=== PATIENT | female | born 1970 | race Caucasian/White ===

== ENCOUNTER 2022-02-10 09:47 | Outpatient (CLI) | payer OTHER, SELFPAY ==
[2022-02-10 14:37] LABS: SARS PCR* Negative SARS-CoV-2 (Negative)
== END 2022-02-10 09:48 | disposition home or self-care (01) ==
LOC: FBOREF 09:48
PROVIDERS: PCP Family Medicine; Visit Provider Family Medicine
DX: Z20.822 Contact with and (suspected) exposure to COVID-19 (principal)
CPT/HCPCS: 87635

== ENCOUNTER 2022-02-11 16:44 | Inpatient (IN) | payer OTHER, SELFPAY ==
[2022-02-11] VITALS (19 sets, daily range): BP systolic 104–135; BP diastolic 59–94; PULSE 61–96; RESP 14–20; TEMP 36.3–37; O2SAT 96–100; BMI 25.0
[2022-02-11] MEDS: LACTATED RINGERS 1000 ML 1,000 ML 100 ML IV ×2 (06:50→14:28)
[2022-02-11] MEDS: SODIUM CHLORIDE 0.9 % (FLUSH) 10 ML SYRINGE IVF (06:57)
[2022-02-11 07:14] LABS: Hemoglobin* 15.9 gm/dL (12.0-16.0)
--- NOTE | 2022-02-11 09:16 | PM.PROC ---
Procedure Note Time Seen by Provider: 16:18 Date Seen: 02/11/22 Date of procedure: 02/11/22 Will [facility] bill your pro fee for this procedure?: Yes Procedure: Preoperative diagnosis: 51-year-old 5 para 3023 dysfunctional uterine bleeding and persistent left ovarian cyst. Non-palpable Nexplanon device: the patient desires to have this removed. Postoperative diagnosis: Same Procedures: 1. Ultrasound-guided Nexplanon Removal. 2. Attempted Total laparoscopic hysterectomy converted to total abdominal hysterectomy, bilateral salpingo oophorectomy and lysis of adhesions. Anesthesia: General endotracheal, local Surgeon: Shannon Mirza MD Assist: Cait Stroud MD Estimated blood loss: 200 mL. IV Fluid: 2,000 mL Urine output: 250 mL Drains: Pacheco to gravity Specimen: 1. Uterus with right fallopian tube and right ovary. 2. Left ovary and fallopian tube. Findings: On exam under anesthesia: The uterus was retroflexed, approximately 8 week size, mobile without nodularity or masses palpable. Adnexa without mass or fullness palpable. On laparoscopy: incidental uterine perforation by uterine manipulator. Thick adhesions of the bladder to the anterior uterine wall to of the round ligaments, almost to the fundus. Approximately 5 cm left ovarian cyst, smooth wall appears benign. Both fallopian tubes normal. Right ovary normal. Procedure: Daphney was taken to the operating room where general anesthetic was found to be adequate. She was placed in the dorsal lithotomy position and an exam under anesthesia was performed with findings stated above. She was then prepped and draped in a normal sterile manner. A Pacheco catheter was placed. The patient's left arm was placed at a 90 degree angle. The instructional media services technician placed the ultrasound probe on the patient's arm and the location of the Nexplanon was identified and marked on her skin. The skin was prepped with betadine, 0.50% Marcaine w/o epinephrine was injected (1.5ml used). A vertical 3mm skin incision was made over the distal devika of the Nexplanon device.The incision was extended horizontally with the scalpel. The ultrasound showed the Nexplanon device at least 5 mm below the skin. A small Kenisha clamp was used dissect through the subcutaneous adipose tissue to visualize the Nexplanon device. The device was noted to be added in the biceps muscle. The Kenisha clamp was used to grasp the Nexplanon device. The capsule was incised with the scalpel and the device removed without difficulty. Three subcutaneous interrupted sutures 4-0 Vicryl were placed. The skin was re-approximated Exofin. Attention was then turned to performing the hysterectomy. A bivalve speculum was placed in the vaginal canal. A single-tooth tenaculum was placed on the posterior lip of the cervix. The internal cervical os was extremely stenotic and the cervix dilated to Hegar #6 significant pressure. When an attempt to sound the uterus was made it was noted that the dilator had perforated the fundus of the uterus. A large VCare uterine manipulator was then placed. The tenaculum and speculum were removed from the cervix. Attention was then turned to performing the laparoscopic portion of the procedure. All incisions were infiltrated with 0.50% Marcaine without epinephrineprior to incising the skin. A vertical, infraumbilical 1 cm incision was made. An 11 mm trocar was then placed under direct visualization. The abdomen was then insufflated with CO2 gas to a pressure of 15 mm of mercury. a diagnostic laparoscopy was performed and noted that the uterine manipulator had perforated the fundus of the uterus just superior to the adhesions of the bladder to the anterior wall of the uterus. The uterine manipulator was removed and 3 attempts to replace it with visualization with the laparoscope was tried without success. Also with visualization of the very thick adhesions of the bladder to the anterior wall of the uterus the decision was made to convert to a total abdominal hysterectomy as these adhesions would not be able to be taken down safely laparoscopically. The 11 mm trocar was removed from umbilical incision and the skin reapproximated with 4-0 Monocryl in a running subcuticular manner. Exofin was then applied. Attention was turned to performing the laparotomy with total abdominal hysterectomy and bilateral salpingo oophorectomy. A Pfannenstiel skin incision was made with a scalpel. This incision was carried down to the underlying layer of fascia with the Bovie. The fascia was incised in the midline and the incision extended laterally with Solorio scissors. The superior and inferior aspects of the fascial incision were grasped with Effie clamps and the underlying rectus muscles dissected off with a combination of blunt and bipolar cautery dissection The rectus muscles were in the midline. The underlying peritoneum was identified and entered bluntly. The peritoneal incision was extended superiorly and inferiorly with good visualization of the bladder using a combination of blunt and sharp dissection. The patient was placed in some mild Trendelenburg position. The bowels were packed cephalad using a large moistened laparotomy sponge. The Bob O retractor was placed in the incision. This provided excellent visualization of the pelvis. The pelvis was inspected with the findings noted above. Jazzmine clamps were placed at the cornua bilaterally for traction. Both ureters were identified along their courses within the pelvic sidewall by visualization. The left tube and ovary were removed using the Olympus PowerSeal dissecting forceps. The left round ligament was doubly clamped with Effie clamps, divided with bipolar cautery and Debora ligated with 0-Vicryl. The anterior leaf of the broad ligament was opened to the midline from the left side. Down to the level of the superior edge of the adhesions of the bladder to the anterior wall of the uterus at approximately the level of the cervix. The right ovary and fallopian tube were elevated with Briana clamps. The ovary and tube were then removed using the Olympus power seal dissecting forceps. The right round ligament was then doubly clamped with Effie clamps, divided with bipolar cautery and Debora suture ligated with 0-Vicryl. The anterior leaf of the broad ligament on the right was then divided with bipolar cautery to the level of the cervix. The adhesions of the bladder to the anterior lower uterine wall were taken down with a combination of blunt and sharp dissection. There were multiple bladder perforating vessels that were grasped with a Briana clamp and cauterized with bipolar cautery. The uterine vessels were skeletonized on the left side. The vessels were clamped across with curved and straight Debora clamps, and suture ligated 0-Vicryl. Excellent hemostasis was obtained. The right uterine vessels were then skeletonized, cross-clamped with Debora clamps, transected and suture ligated with 0 Vicryl. Attention was then turned to the left side. The left round ligament was clamped with 2 Effie clamps, transected, and suture ligated with 0-Vicryl. The anterior leaf of the broad ligament was opened from the left side to the midline. The bladder flap was then created bluntly. The bladder was further pushed caudally with a sponge stick. The left fallopian tube was clamped across its attachments serially, transected, and suture ligated with 0-Vicryl until the tube was transected at the cornua. The left ovarian ligament was clamped with 2 Debora clamps, transected, and doubly suture ligated with 0-Vicryl. Hemostasis was visualized. The left uterine vessels were skeletonized and then clamped across with Debora clamps, transected, and suture ligated. Excellent hemostasis was obtained. At this point the enlarged uterus was removed from the cervix using Solorio scissors. The cervix was then grasped with 2 Effie clamps. The remaining cardinal and uterosacral ligament attachments on both sides were clamped with straight Debora clamps adjacent to the lower uterine segment and cervix, transected and suture ligated with 0 Vicryl. Excellent hemostasis was obtained. Two Debora clamps were placed across the vaginal cuff angles. The uterus with attached cervix was then transected and passed off the field. The vaginal cuff angles were fixed with Debora stitches of 0 Vicryl. The intervening vaginal cuff was closed with [id number] sutures of 0 Vicryl. The abdomen and pelvis were then copiously irrigated. Small bleeding vessels were isolated with DeBakey clamps and cauterized for hemostasis. The pelvis was copiously irrigated and hemostasis verified. Abbi was then apply to the inferior aspect of the bladder flap to confirm hemostasis. All laparotomy sponges and instruments were then removed. The subfascial tissues were carefully inspected and hemostasis assured. The fascia was re-approximated in a running fashion with a looped 0-Maxon suture. The subcutaneous tissues were copiously irrigated and hemostasis assured. The subcutaneous adipose layer was re-approximated using interrupted 3-0 plain gut sutures. The skin was closed in a subcuticular fashion with 4-0 Monocryl. Steristrips placed and a silver-containing Methaplex dressing was applied. The patient tolerated this procedure well. Sponge, lap and instrument counts were correct x2 at the end of the procedure and the patient was taken to the recovery area in stable condition. The patient received 2 gm IV ancef prior to the start of the procedure. She received 30mg IV Toradol prior to being awakened from anesthesia. Surgeon: Shannon Mirza MD
[2022-02-11] MEDS: CEFAZOLIN 2 GM INJ IVP (13:15)
--- NOTE | 2022-02-11 15:56 | CRLHL7_ITS ---
For Patients: As a result of the Century Cures Act, medical imaging exams and procedure reports are released immediately into your electronic medical record. You may view this report before your referring provider. If you have questions, please contact your health care provider. INDICATION: Assess for retained instrument or sponge. TECHNIQUE: Abdomen 1 view(s) COMPARISON: None. FINDINGS/IMPRESSION: No evidence of metallic foreign object/metallic surgical instrument within provided field of view. No retained surgical sponge identified, noting that evaluation is limited due to large fecal burden projecting over the pelvis. Few prominent loops of air-filled colon. Visualized lung bases are grossly clear. Dictated by Lisbeth Evans MD @ 02/11/2022 5:31:47 PM (Electronically Signed)
--- NOTE | 2022-02-11 16:00 | P.NB_ITS ---
Nerve Block Nerve Block Time Seen by Provider: 13:15 Date Seen: 02/11/22 Type of block requested by surgeon for post-operative analgesia: TAP Side: bilateral Time out performed: Yes Verification of patient name: Yes Verification of date of : Yes Site marking: site marked Name of person performing procedure: John Continuous monitoring Was continuous monitoring of O2 sat, B/P, laboratory monitor, recorded every 15 minutes?: Yes Procedure Checklist: sterile prep, needles and gloves Ultrasound guided. Images saved: Yes Medications given in 5ml increments after negative aspiration: Marcaine %: 0.25 mL: 30 Needle gauge: 20 and Exparel mL: 10 Patient tolerated procedure well: Yes Additional comments: Needle noted adjacent to nerve Block Charges Block Charge (with Pro Fee): TAP Bilateral Use of Ultrasound Machine for Block: Yes- US Guidance/pain block
--- NOTE | 2022-02-11 16:17 | W.ANESCHARGE ---
Anesthesia Charges Start Date/Time Anesthesia Start Date: 02/11/22 Anesthesia Start Time: 13:06 Stop Date/Time Anesthesia Stop Date: 02/11/22 Anesthesia Stop Time: 16:27 Summary Emergency: No
[2022-02-11] MEDS: LACTATED RINGERS 1000 ML 1,000 ML 125 ML IV (16:42)
[2022-02-11] MEDS: MORPHINE 2 MG/ML inj IVP ×2 (17:44→20:16)
[2022-02-11] MEDS: KETOROLAC 30 MG/ML inj IVP (22:22)
[2022-02-12] MEDS: ACETAMINOPHEN 325 MG TABLET 1000 MG PO (00:06)
[2022-02-12] MEDS: LORazepam 2 MG/ML inj IVP (00:21)
[2022-02-12] MEDS: LACTATED RINGERS 1000 ML 1,000 ML 125 ML IV ×2 (00:57→05:32)
[2022-02-12 03:47] VITALS: TEMP 37
[2022-02-12] MEDS: KETOROLAC 30 MG/ML inj IVP ×4 (03:47→22:05)
[2022-02-12 03:49] VITALS: BP 117/71; PULSE 90; RESP 16; TEMP 37; O2SAT 97
[2022-02-12 05:40] LABS: Hemoglobin* 12.7 gm/dL (12.0-16.0)
[2022-02-12 08:06] VITALS: BP 127/76; PULSE 83; RESP 16; TEMP 37; O2SAT 98
--- NOTE | 2022-02-12 08:49 | PM.GYNPNPO ---
DYNAMICS AX SOLUTION ARCHITECT - A/P Assessment and plan (1) S/P abdominal hysterectomy: Status: Acute (2) S/P bilateral salpingo-oophorectomy: Status: Acute (3) Nexplanon removal: Status: Acute (4) Left ovarian cyst: Status: Acute (5) Dysfunctional uterine bleeding: Status: Acute Plan ASSESSMENT/PLAN: POD#1 from ultrasound-guided nexplanon removal and attempted total laparoscopic hysterectomy converted to total abdominal hysterectomy, bilateral salpingo oophorectomy and lysis of adhesions on 02/11. Currently not yet 24 hours from surgery. Hgb Post op is 12.7 and vitals are stable. Patient will work on PO intake and ambulation today. Will stay another night for monitoring and advancement of postop milestones. Postoperative Procedures: Procedures Operation Date: 02/11/22 07:45 Actual Procedure Side Surgeon p Total Laparoscopic Hysterectomy converted to Total Abdominal Hysterectomy, Bilateral Salpingo-Oophorectomy, Nexplanon Removal-U/S Guided, Cystoscopy, lysis of adhesions Shannon Mirza MD Time Spent With Patient Time: Total time spent is greater than 50% in coordination of care (as documented) at patient's floor/unit and/or counseling patient: Time with patient: less than 15 minutes DYNAMICS AX SOLUTION ARCHITECT- PN:Subj Post-Op Subjective Time Seen by Provider: 08:30 Date Seen: 02/12/22 Post Operative Details: SUBJECTIVE: The patient is post-op day #1 but not yet 24 hours from her surgery. She underwent ultrasound-guided nexplanon removal and attempted total laparoscopic hysterectomy converted to total abdominal hysterectomy, bilateral salpingo oophorectomy and lysis of adhesions on 02/11. She reports that since her surgery she's had a lot of pain within the first 12 hours which as since improved. Currently, feeling fatigued. She has passed gas and urinating without a wu. Minimal po intake since surgery but no nausea or vomiting overnight. Minimal vaginal bleeding. She's been out of bed to chair a few times but has not been ambulating much. We discussed the reason for converting to an abdominal hysterectomy is due to bladder adherence to her uterine body and inability to insert the uterine manipulator. Discussed with patient that she will most likely stay for one more day given her level of fatigue. DYNAMICS AX SOLUTION ARCHITECT-PN: Obj Exam Physical Exam: Vital signs: Temp Pulse Resp BP Pulse Ox O2 Del Method 98.6 F 83 16 127/76 98 02/12/22 08:06 02/12/22 08:06 02/12/22 08:06 02/12/22 08:06 02/12/22 08:06 02/12/22 08:06 DYNAMICS AX SOLUTION ARCHITECT - PN: Obj Data Labs Labs: Laboratory Results - last 24 hr 02/11/22 02/12/22 07:00 05:20 Hgb 12.7 Blood Type O Positive Antibody Screen NEGATIVE OBJECTIVE: VITAL SIGNS: She is afebrile. GENERAL: Pleasant woman in no acute distress. Appears fatigued but with good color and alertness. PSYCHIATRIC: Alert and oriented x3. Normal speech pattern and affect. HEART: Regular rate and rhythm. LUNGS: Clear to auscultation bilaterally. ABDOMEN: Soft and nondistended with positive bowel sounds throughout. Appropriate tenderness at incision site. Mild tenderness at right upper quadrant. INCISION(S): Dressing clean and dry without blood or spreading erythema. Nexplanon removal site clean, dry, without erythema or abnormal discharge. PELVIC: Deferred. EXTREMITIES: Without cyanosis, clubbing, or edema. NEUROLOGIC: Grossly intact
--- NOTE | 2022-02-12 09:01 | W.ANESCHARGE ---
Anesthesia Charges Start Date/Time Anesthesia Start Date: 02/11/22 Anesthesia Start Time: 13:06 Stop Date/Time Anesthesia Stop Date: 02/11/22 Anesthesia Stop Time: 16:27 Summary Emergency: No
--- NOTE | 2022-02-12 09:10 | P.GYNPN_ITS ---
CARDROOM MANAGER - A/P Postoperative Procedures: Procedures Operation Date: 02/11/22 07:45 Actual Procedure Side Surgeon p Total Laparoscopic Hysterectomy converted to Total Abdominal Hysterectomy, Bilateral Salpingo-Oophorectomy, Nexplanon Removal-U/S Guided, Cystoscopy, lysis of adhesions Shannon Mirza MD Time Spent With Patient Time: Total time spent is greater than 50% in coordination of care (as documented) at patient's floor/unit and/or counseling patient: Time with patient: less than 15 minutes CARDROOM MANAGER- PN:Subj Post-Op Subjective Time Seen by Provider: 09:10 Date Seen: 02/12/22 Post Operative Details: Subjective: Daphney is a 51-year-old 5 para 3023 who is postop day 1 from a total abdominal hysterectomy/bilateral salpingo oophorectomy/lysis of adhesions for dysfunctional uterine bleeding and left ovarian cyst. She is doing well today but states she is very tired. She states her pain is well controlled. She is tolerating clear liquids and saltine crackers. She denies nausea/vomiting. She is urinating without difficulty. Has had adequate urine output. She has been ambulating without difficulty. She is passing flatus. Objective: General: Pleasant, , well groomed woman in no acute distress. Vital signs: Per electronic medical record Heart: Regular rate and rhythm without gallop, rub or murmur. Chest: Clear to auscultation bilaterally. Abdomen: Soft, nontender, mildly distended. No CVA or flank tenderness. Normal bowel sounds throughout Incision: Silver-containing dressing in place and dry. Extremities: No pain or edema Assessment: 51-year-old postoperative day# 1 from a TABATHA/BSO/SAMMIE. Plan: 1. Continue routine postop care. 2. Planning discharge home tomorrow. CARDROOM MANAGER-PN: Obj Exam Physical Exam: Vital signs: Temp Pulse Resp BP Pulse Ox O2 Del Method 98.6 F 83 16 127/76 98 02/12/22 08:06 02/12/22 08:06 02/12/22 08:06 02/12/22 08:06 02/12/22 08:06 02/12/22 08:06 CARDROOM MANAGER - PN: Obj Data Labs Labs: Laboratory Results - last 24 hr 02/11/22 02/12/22 07:00 05:20 Hgb 12.7 Blood Type O Positive Antibody Screen NEGATIVE
[2022-02-12] MEDS: DOCUSATE SODIUM 100 MG CAPSULE PO (10:02)
[2022-02-12 13:20] VITALS: BP 119/76; PULSE 85; RESP 16; TEMP 37; O2SAT 98
[2022-02-12 16:06] VITALS: BP 116/74; PULSE 75; RESP 16; TEMP 37; O2SAT 98
[2022-02-12 17:16] LABS: Ur HCG Qualitative* Negative (Negative)
[2022-02-12 20:23] VITALS: BP 115/71; PULSE 82; RESP 16; TEMP 37; O2SAT 96
--- NOTE | 2022-02-12 23:21 | PC.NURSE ---
NARCISO updated Maximus MEJIA that pt. had her nexplanon removed yesterday and that the wound is now dehisced. RN states that during the removal that they had to go to the muscle. RN asked MD what she would like us to do and if steri strips are enough to put on it. states that steri strips over the wound would be fine and states that there were a few subdermal stitches that were placed so it should hold.
[2022-02-13 01:00] VITALS: BP 109/71; PULSE 90; RESP 16; TEMP 37.3; O2SAT 95
[2022-02-13] MEDS: LACTATED RINGERS 1000 ML 1,000 ML 125 ML IV (05:26)
[2022-02-13 08:33] VITALS: TEMP 36.6
[2022-02-13] MEDS: IBUPROFEN 600 MG TABLET PO (08:33)
[2022-02-13 08:34] VITALS: BP 128/84; PULSE 88; RESP 16; TEMP 37.1; O2SAT 96
[2022-02-13 09:30] VITALS: TEMP 36.7
--- NOTE | 2022-02-13 09:34 | P.DS_ITS ---
DS: Providers Provider Time Seen by Provider: 09:36 Date Seen: 02/13/22 Date of admission: 02/11/22 16:44 Primary care physician: Juan Butler DO Admitting Clinician: Shannon Mirza MD Attending Physician on discharge: Shannon Mirza MD Date of Discharge: 02/13/22 PORCELAIN FINISHER-Discharge Summary Hospital Course Hospital Course Narrative: Patient is a [] year old admitted on [] for []. Indication for surgery: []. Intraoperative findings were notable for []. She had an uncomplicated surgery. Postoperative course has been uneventful. Vitals have been stable. She has remained afebrile. Today, on postoperative day [], she reports the pain is well controlled. She has been able to ambulate Without difficulty. She is tolerating regular diet. She is passing flatus. Pacheco catheter has been removed, and she is voiding without difficulty. Time Spent with Patient Time attestation: Total time spent providing and/or coordinating discharge services: PORCELAIN FINISHER - Exam Physical Exam: Vital signs: Temp Pulse Resp BP Pulse Ox O2 Del Method 98.7 F 88 16 128/84 96 02/13/22 08:34 02/13/22 08:34 02/13/22 08:34 02/13/22 08:34 02/13/22 08:34 02/13/22 08:34 Narrative: Hospital Course: Daphney was admitted to the hospital on 02/11/2022 for a scheduled total laparoscopic hysterectomy converted to total abdominal hysterectomy, bilateral salpingo oophorectomy and diagnostic cystoscopy. Her surgery was uncomplicated. Her postoperative course was also uncomplicated. By postoperative day 1, she was tolerating a regular diet, ambulating without difficulty, passing flatus and pain was well controlled with oral pain medications. She would like to be discharged home today. Labs: Preoperative hemoglobin 15.3, postoperative hemoglobin 12.7. Objective: General: Alert and oriented x3. Pleasant, [ethinicity] woman in no acute distress. Vital signs: See EMR. Heart: Regular rate and rhythm without gallop, rub or murmur. Chest: Clear to auscultation bilaterally. Abdomen: Soft, nontender, nondistended with normal bowel sounds throughout. No CVA or flank tenderness. Incision(s): Silver-containing dressing clean, dry and intact. Pelvic: Minimal vaginal bleeding, remainder of pelvic exam deferred. Extremities: No pain, edema, cyanosis or clubbing. Assessment: 51-year-old postoperative day 2 from an Attempted TLH converted to TABATHA/BSO/cystoscopy, doing well. Plan: 1. Discharge home today. 2. Activity restrictions reviewed with the patient. 3. Return to clinic to see Dr. Mirza for an incision check on 02/17 or 02/18/2022 to remove her dressing. Then in approximately 5 weeks for postoperative exam. PORCELAIN FINISHER - DS: Data Data Completed and Pending Labs on day of discharge: Labs from last 24 hours 02/11/22 06:50 Urine HCG, Qual Negative Procedures Procedures: Procedures Operation Date: 02/11/22 07:45 Actual Procedure Side Surgeon p Total Laparoscopic Hysterectomy converted to Total Abdominal Hysterectomy, Bilateral Salpingo-Oophorectomy, Nexplanon Removal-U/S Guided, Cystoscopy, lysis of adhesions Shannon Mirza MD Discharge Plan Discharge Disposition: Home, Self-Care Date of Admission: 02/11/22 16:44 Attending Provider on Discharge: Shannon Mirza Primary Care Provider: Juan Butler Condition: Stable Anticipated Discharge Date/Time: 02/13/22 09:34 Discharge Medications: New docusate sodium 100 mg Capsule 100 mg PO BID PRN (Reason: Constipation) Qty: 100 0RF ibuprofen 600 mg Tablet 600 mg PO Q6H 30 Days Qty: 40 0RF oxycodone 5 mg Tablet 5 mg PO 3XD PRN (Reason: Moderate Pain) 7 Days Qty: 21 0RF Discontinued peg 3350-electrolytes [Golytely] 236-22.74-6.74 -5.86 gram recon soln 240 ml PO Q15M Qty: 4000 0RF Rx Instructions: Keep refrigerated. Drink 8oz every 15 minutes until stool runs clear. Start at 4pm on the day prior to surgery. Discharge Orders: Discharge Order (Routine); Ordered 02/13/22 Ordered By: Shannon Mirza Patient Education: Surgical Site Infections (DC), Hysterectomy (DC) Additional Instructions: Discharge instructions were reviewed with the patient including signs and symptoms of infection and medications to use for pain.? Walking and going up or down stairs is safe as soon as you arrive home. Showering is safe immediately: soap, water, pat dry. Leave dressing in place until 02/17 or 02/18/22. Activity restrictions: No lifting greater than 20 pounds for 6 weeks. Nothing per vagina for 6 weeks = no tampons or intercourse. No driving while taking narcotic pain medication. Off work or school for 6 weeks. No core or high impact exercise for 6 weeks. No soaking the incision in a bathtub or pool for 2 weeks. ? Follow up appointments: 1. With Dr. Shannon Mirza on 02/17 or 02/18/22 for dressing removal and incision check. 2. In 5 weeks for a postoperative visit or sooner as needed. Discharge Diet: Regular Follow Up Appointments: Juan Butler DO [Primary Care Provider] - Shannon Mirza MD [Staff Physician] - Forms: Work/Release Restrictions
== END 2022-02-13 11:30 | disposition home or self-care (01) | DRG 742 ==
LOC: SS 02-12 10:29 → OB 02-12 10:29
PROVIDERS: Admitting Provider Obstetrics & Gynecology; PCP Family Medicine; Visit Provider Obstetrics & Gynecology
PROC: 0UT94ZZ Resection of Uterus, Percutaneous Endoscopic Approach (ICD-10-PCS; principal; 2022-02-11 07:45)
DX: N93.8 Other specified abnormal uterine and vaginal bleeding (principal); N99.71 Accidental puncture and laceration of a genitourinary system organ or structure during a genitourinary system procedure; D27.1 Benign neoplasm of left ovary; Z30.46 Encounter for surveillance of implantable subdermal contraceptive; N73.6 Female pelvic peritoneal adhesions (postinfective); Z53.31 Laparoscopic surgical procedure converted to open procedure; N84.0 Polyp of corpus uteri
CPT/HCPCS: 00840; 36415; 64488; 74018; 76882; 76942; 76998; 81025; 85018; 86850; 86900; 86901; 88307; 88341; 88342; A9270; C9290; J0330; J0690; J1100; J1200; J1885; J2060; J2270; J2405; J2704; J3010; J3490; J7120